=== PATIENT | male | born 1985 | race Two or more races ===

== ENCOUNTER 2016-09-03 11:36 | Emergency (ER) | payer OTHER ==
[~2016-09-03] VITALS: Ht 167.6 cm; Wt 82.5 kg
[2016-09-03 11:40] VITALS: BP 126/81; PULSE 56; RESP 16; TEMP 98.2; O2SAT 100
--- NOTE | 2016-09-03 12:16 | PD ---
HPI Chief Complaint: Injury Time Seen by Provider: 12:16 Travel History International Travel<30 days: No Contact w/Intl Traveler<30days: No Traveled to known affect area: No History of Present Illness HPI 31-year-old right-hand dominant male presents to the ED for evaluation of a nail gun injury to left thumb. Patient states he was using a nail gun and shot a nail through his thumb. He states that he immediately removed the nail with his teeth. He endorses "very little" pain. He denies numbness, tingling, weakness, limitations to range of motion or loss of strength of the thumb. He is unsure of his last tetanus immunization. He denies chronic health problems and takes no daily medications. NKDA. PFSH Past Medical History Medical History: Denies Significant Hx Diminished Hearing: No Tetanus Vaccination: Unknown Influenza Vaccination: No ?: Not Past Surgical History Surgical History: No Previous Surgery Social History Alcohol Use: Yes (occ) Tobacco Use: No Allergies-Medications (Allergen,Severity, Reaction): Coded Allergies: No Known Allergies (Unverified , 09/03/16) Reported Meds & Prescriptions Reported Meds & Active Scripts Active Keflex (Cephalexin) 250 Mg Cap 250 Mg PO Q6H 10 Days Bactrim DS (Sulfamethoxazole-Trimethoprim) 800-160 Mg Tab 1 Tab PO BID Review of Systems Except as stated in HPI: all other systems reviewed are Neg Physical Exam Narrative GENERAL: Well-nourished, well-developed male in no acute distress.. SKIN: Focused skin assessment warm/dry. There is a single puncture wound of the left thumb distal to the DIP and proximal to the nail bed. This puncture penetrates completely with an exit wound in the tuft of the right thumb. HEAD: Normocephalic. EYES: No scleral icterus. No injection or drainage. NECK: Supple, trachea midline. No JVD or lymphadenopathy. CARDIOVASCULAR: Regular rate and rhythm without murmurs, gallops, or rubs. RESPIRATORY: Breath sounds equal bilaterally. No accessory muscle use. GASTROINTESTINAL: Abdomen soft, non-tender, nondistended. MUSCULOSKELETAL: No cyanosis, or edema. Focused right upper extremity exam: 2+ radial pulse. Distal thumb mildly erythematous, ecchymotic and tender. Strong finger to thumb opposition on each digit. Patient is able to strongly flex, extend, abduct and adduct the thumb to opposition. Sensation intact to light touch distally on each digit. Cap refill less than 2 seconds on each digit. BACK: Nontender without obvious deformity. No CVA tenderness. Data Data Last Documented VS Vital Signs Date Time Temp Pulse Resp B/P Pulse Ox O2 Delivery O2 Flow Rate FiO2 09/03/16 11:40 98.2 56 16 126/81 100 Orders Tetanus/Diphtheria Tox Adult (Tetanus/Di (09/03/16 12:30) Finger ([id number]) (09/03/16 12:21) Cefazolin 2 Gm Premix (Ancef 2 Gm Premix (09/03/16 12:45) ^ Insert Iv (09/03/16 12:42) Ibuprofen (Motrin) (09/03/16 13:15) Mandatory Outpatient Referral (09/03/16 13:42) [facility] Medical Decision Making Medical Screen Exam Complete: Yes Emergency Medical Condition: Yes Differential Diagnosis Puncture wound versus penetrating fingertip injury versus laceration versus need for tetanus prophylaxis versus other Narrative Course 31-year-old right-hand dominant male presents to the ED for evaluation of a nail gun injury to left thumb. Patient states he was using a nail gun and shot a nail through his thumb. He states that he immediately removed the nail with his teeth. He endorses "very little" pain. He denies numbness, tingling, weakness, limitations to range of motion or loss of strength of the thumb. He is unsure of his last tetanus immunization. Vitals reviewed. Physical exam reveals a male in no acute distress. There is a single puncture wound to the left thumb distal to the DIP and proximal to the nail bed. This puncture penetrates completely with an exit wound in the tuft of the right thumb. The thumb is mildly edematous, ecchymotic and tender. There is a 2+ radial pulse. Strong finger to thumb opposition, strong flexion, extension, abduction, abduction of the thumb, sensation intact distally on each digit, cap refill less than 2 seconds on each digit of the left hand. The thumb was soaked in a 50:50 solution of peroxide and Betadine. The wound was flushed with 500mL NS. A sterile dressing was applied. Patient was administered 800 mg ibuprofen. IV was established and the patient was administered 2 g of Ancef. X -rays reveal on open fracture distal phalanx of the left thumb, no foreign body by my read. Radiology read pending. I contacted the quality control specialist hand surgeon who feels that the patient is safe with outpatient antibiotics and an office follow- up. Patient was prescribed Bactrim and Keflex. He is instructed take all medication as prescribed. A mandatory outpatient follow-up ordered was placed. I explained this process to the patient. He indicated understanding of the instructions and is agreeable to the plan of care. He is stable and discharged home. Diagnosis Primary Impression: Injury of thumb by nail gun Qualified Code: S69.92XA - Injury of thumb by nail gun, left, initial encounter Additional Impression: Fracture of distal phalanx of right thumb Qualified Code: S62.524B - Open nondisplaced fracture of distal phalanx of right thumb, initial encounter Referrals: Ivory Eastman MD Patient Instructions: Finger Fracture (ED), General Instructions Additional Instructions: Rest, hydrate. Do not change the dressing for 2 days. You may bathe normally. Do not submerge the wound. After bathing pat of wound dry. Allow the wound to air dry for 10-15 minutes. Apply a thin layer of antibiotic ointment and a clean, dry dressing. Take the antibiotics as they are prescribed, even if your symptoms resolve. Utilize [id number] pain medications, as described on the label, as needed. Mandatory outpatient follow-up has been placed on her behalf. The hospital or the hand surgeon's office will contact you within 1 week. Follow-up with the hand surgeon, Dr. Eastman, as discussed. Follow-up with workman's comp today. Return to the ED for any urgent or emergent medical condition. Med/Other Pt SpecificInfo: Prescription(s) given Scripts Cephalexin (Keflex)250 Mg Asj101 Mg PO Q6H 10 Days Ref 0 Prov:Mando Sandhu MD 09/03/16 Sulfamethoxazole-Trimethoprim (Bactrim DS)800-160 Mg Tab1 Tab PO BID #14 TAB Ref 0 Prov:Mando Sandhu MD 09/03/16 Disposition: 01 DISCHARGE HOME Condition: Stable Dari Golden Sep 03, 2016 12:16
[2016-09-03] MEDS ORDERED: TETANUS/DIPHTHERIA TOXOID ADULT 0.5 ML VIAL IM ONE (12:30)
[2016-09-03] MEDS ORDERED: ceFAZolin 2 GM PREMIX 50 ML IV ONE (12:45)
--- NOTE | 2016-09-03 13:06 | RADHPO ---
EXAM DATE/TIME: 09/03/2016 12:33 [facility] COMPARISON: No previous studies available for comparison. INDICATIONS : Nail went through left thumb while using a nail gun, patient pulled nail out before coming to emerge ncy department. MEDICAL HISTORY : None. SURGICAL HISTORY : None. ENCOUNTER: Initial ACUITY: 1 day PAIN SCORE: 3/10 LOCATION: Left thumb FINDINGS: There is a puncture wound through the bone with fracture in this patient with history of penetrating injury. No intra-articular extension is present. No foreign body is identified. CONCLUSION: 1. Fracture distal findings of the thumb without residual foreign body Michael Pantoja MD on September 03, 2016 at 13:03 Board Certified Radiologist. This report was verified electronically.
[2016-09-03] MEDS ORDERED: IBUPROFEN 800 MG TAB PO ONE (13:15)
[2016-09-03] MEDS ORDERED: BACT800T5 PO (13:37)
[2016-09-03] MEDS ORDERED: CEPH-459 PO (13:37)
== END 2016-09-03 13:57 | disposition home or self-care (01) ==
LOC: PHEFT 11:36
DX: S62.522B Displaced fracture of distal phalanx of left thumb, initial encounter for open fracture (principal); Z23 Encounter for immunization; W29.4XXA Contact with nail gun, initial encounter; Y93.89 Activity, other specified; Y92.89 Other specified places as the place of occurrence of the external cause; Y99.8 Other external cause status
CPT/HCPCS: 73140; 90471; 90714; 96365; 99283; J0690